=== PATIENT | male | born 1985 | race Hispanic/Latino ===

== ENCOUNTER 2019-12-29 16:15 | Outpatient (CLI) | payer OTHER ==
--- NOTE | 2019-12-29 16:31 | RAD ---
Right shoulder 3 views HISTORY: Shoulder pain. FINDINGS: Acromioclavicular and glenohumeral alignment are maintained. No acute fracture, dislocation, or aggressive osseous erosions. IMPRESSION : No abnormalities are demonstrated.
== END 2019-12-29 16:16 | disposition home or self-care (01) ==
LOC: SCSRAD 16:15
PROVIDERS: ATTEND Family Medicine
DX: M25.511 Pain in right shoulder (principal)

== ENCOUNTER 2020-02-03 14:52 | Outpatient (CLI) | payer OTHER ==
--- NOTE | 2020-02-03 15:44 | MRI ---
MR of the right shoulder without contrast INDICATION: Right shoulder pain. Right anterior shoulder pain for 2 months TECHNIQUE: Sagittal T1, axial and coronal PD fat sat, sagittal and coronal T2 fat sat images were obt ained of the right shoulder. COMPARISON: None. FINDINGS: Motion artifact limits image detail. Rotator cuff: Intact. Glenohumeral joint: Articular cartilage is intact. Glenoid labrum: There is a full-thickness tear involving the anterior superior, superior and posterio r superior glenoid labrum without tear extension into the biceps anchor complex. There is redundancy the more cephalad aspect of the middle glenohumeral ligament likely related to the full-th ickness labral tear in the region of the anterior superior glenoid labrum. Biceps tendon and biceps anchor: Intact and located. Acromion clavicular joint: There is mild AC joint hypertrophy. There are subchondral cystlike abnorma lities involving the distal clavicle. Subacromial subdeltoid space: Trace amount of fluid is seen within the subacromial subdeltoid bursa. Axillary region: No lymphadenopathy. Surrounding shoulder musculature: Normal. No evidence of atrophy or strain. IMPRESSION: 1. Full-thickness SLAP tear involving the anterior superior, superior and posterior superior glenoid labrum. 2. Mild AC joint osteoarthrosis.
== END 2020-02-03 14:53 | disposition home or self-care (01) ==
LOC: TBSIIMAG 14:52
PROVIDERS: ATTEND Family Medicine
DX: M25.511 Pain in right shoulder (principal); S43.431A Superior glenoid labrum lesion of right shoulder, initial encounter; M19.011 Primary osteoarthritis, right shoulder